=== PATIENT | female | born 1990 | race African-American/Black ===

== ENCOUNTER 2024-02-13 03:02 | Emergency (ER) | payer OTHER, SELFPAY ==
[2024-02-13 03:04] VITALS: BP 120/76
[2024-02-13 03:14] VITALS: BMI 19.4
--- NOTE | 2024-02-13 03:42 | ED.GENMED ---
History of Present Illness
General
Chief Complaint: Abdominal Pain
Source: patient
Exam Limitations: none
Time Seen by Provider: 02/13/24 03:28
Nursing documentation reviewed up to this point in time: agreed with
Travel History
Have you had any contact with someone who has COVID-19?: No
Do you have any symptoms of coronavirus? Fever > 100 degrees, chills, cough, shortness of breath, sore throat, loss of taste or smell, muscle aches, or headache?: No
History of Present Illness
History of Present Illness:
Pleasant 33-year-old female who presents with diffuse and upper abdominal pain. She states that it has been present for the last day. She reports that it feels similar to previous episodes of diverticulitis. She denies fever, chills, chest pain,
or shortness of breath. Patient states that she just got back from [place] on January 04. She reports that the last time she was diagnosed with diverticulitis, it was approximate month after returning home from [place]. She feels that there is a
correlation between her travels and her episodes of diverticulitis. Patient reports no previous abdominal surgeries. She does follow with a pot sander at an outside hospital.
Past History
Past History
ED Past Medical History: GERD
ED Past Surgical History: Other (Breast augmentation)
Social History
Tobacco: Non-smoker
Living: with roommate
Employment: Employed ([employer])
Review of Systems
Review of Systems
Allergies reviewed?: Yes
All Other Systems: ROS reviewed and negative except as documented in HPI and ROS
Constitutional: Reports no symptoms
EENT: Reports no symptoms
Respiratory: Reports no symptoms
Cardiac: Reports no symptoms
ABD/GI: Reports abdominal pain and nausea
: Reports no symptoms
Musculoskeletal: Reports no symptoms
Skin: Reports no symptoms
Neurological: Reports no symptoms
Endocrine: Reports no symptoms
Hematologic/Lymphatic: Reports no symptoms
Psychiatric: Reports no symptoms
Phy Exam
General Physical Exam
General Presentation: well appearing and no apparent distress
General Skin: warm and dry
General Habitus: normal
General Mental: alert
General Hydration: appears well hydrated
ENT Exam
ENT Exam: EOMI, pharynx normal, neck supple and normocephalic
Eye Exam
Eye Exam: PERRL, cornea clear and conjunctiva normal
Cardiovascular Exam
Cardiovascular Exam: regular rate/rhythm, no edema, no murmur and normal peripheral pulses
Pulmonary Exam
Pulmonary Exam: lungs clear, no respiratory distress, no rales, no crackles, no rhonchi, no stridor, no wheezing and no cough
Gastrointestinal Exam
Gastrointestinal Exam: soft, no organomegaly, no pulsatile mass and non distended
Palpation: generalized: Minimal tenderness
Neurological Exam
Neurological Exam: alert, oriented x3, no motor deficits and speech normal
Musculoskeletal Exam
Musculoskeletal Exam: full ROM and no edema
Skin Exam
Skin Exam: normal color, warm/dry, no rash and no petechia
Psychiatric Exam
Psychiatric Exam: normal mood/affect
Course
Orders/Labs/Results
Orders:
Orders
02/13/24 03:09
IV Insert/Care/Rem.- Treatment PRN
02/13/24 03:10
Test Result ONCE
02/13/24 03:32
Complete Blood Count/With Diff Urgent
Comprehensive Metabolic Panel Urgent
HCG, Serum Qualitative Screen Urgent
Lipase Urgent
02/13/24 03:41
Iohexol [Omnipaque] See Protocol PO NOW STA
02/13/24 03:42
CT Abd/pel W Iv And Oral Contr Urgent
Comment:
Reason For Exam: diffuse abd pain
02/13/24 04:04
Morphine Sulfate 4 mg .ROUTE .STK-MED ONE
Morphine Sulfate 4 mg IV NOW STA
Ondansetron Injectable [Zofran] 4 mg .ROUTE .STK-MED ONE
Ondansetron Injectable [Zofran] 4 mg IV NOW STA
02/13/24 04:05
Iohexol [Omnipaque] 50 ml .ROUTE .STK-MED ONE
02/13/24 04:08
0.9% Sodium Chloride 1000 ml [Nss] 1,000 ml IV BOLUS
02/13/24 04:36
Urinalysis Reflex To Culture Urgent
Date Specimen was Collected: 02/13/24
Time Specimen was Collected: 04:34
Abnormal Lab Results
02/13/24
03:32
RBC 3.93 L 10^6/uL
(4.20-5.40)
Hgb 11.9 L g/dL
(12.0-16.0)
Hct 34.2 L %
(37.0-47.0)
Neutrophils % 76.7 H %
(42.2-75.2)
Lymphocytes % 18.0 L %
(20.5-51.1)
Chloride 108 H mmol/L
(98-107)
Glucose 126 H mg/dl
(70-99)
02/13/24 03:32
02/13/24 03:32
Vital Signs
Initial and Last Documented VS:
Initial Vital Signs
Temp Pulse Resp BP Pulse Ox
97.9 F 96 18 120/76 100
02/13/24 03:04 02/13/24 03:04 02/13/24 03:04 02/13/24 03:04 02/13/24 03:04
Last Documented Vital Signs
Temp Pulse Resp BP Pulse Ox
97.9 F 65 18 104/65 100
02/13/24 03:04 02/13/24 07:55 02/13/24 07:55 02/13/24 07:55 02/13/24 07:55
*Critical Care Note
Total Time (30-74mins, 75-104mins- exclusive of procedures): Not Applicable
Update Note
Update Note:
Patient has had 2 children. Denies vaginal bleeding discharge or pelvic pain. States that her pain is in her upper abdomen. I discussed CAT scan findings with her. At this time she defers pelvic exam stating that she will follow-up with her
RE ETCHER. She will return to the ER if she cannot get follow-up. Patient being discharged in stable condition.
ED Attending Note
-
Portions of this chart may have been created with voice recognition software.� Occasional wrong word or��sound alike� substitutions may have occurred due to the inherent limitations of voice recognition software.
Discharge Plan
Departure
Patient Disposition: Home (Routine Discharge)
Date of Disposition: 02/13/24
Time of Disposition: 07:12
Patient with high blood pressure during this ER visit?: No
Discharge Problem:
Abdominal pain, Constipation
Prescriptions:
No Action
Daily Fiber (psyllium-aspart)
1 dose PO DAILY
Probiotic
1 tab PO DAILY
multivitamin
1 tab PO DAILY
Referrals:
Alesha Wise CRNP [Family Provider] -
Activity Restrictions/Additional Instructions:
I have given you a copy of your CT scan report. Please follow-up with your RE ETCHER, as discussed
It was a pleasure meeting you and taking part in your care. We hope for your continued healing and wellness.
Please read discharge instructions in their entirety. However, they are for general education and may not describe your exact diagnosis at discharge. Information on your ER visit and medical conditions were discussed with you along with appropriate
follow up information...
If indicated, please take your medications as instructed and indicated on discharge paperwork.
Please schedule a follow up appointment as directed. Call to schedule an appointment
Please return to the emergency department with ANY change in, persisting, or worsening of symptoms. If any of your symptoms do not improve, or persist, or become more severe within 6-12 hours, please return to the emergency department for further
care.
Please return to the emergency department if you develop a headache, neck pain/stiffness, fever greater than 100.4F, chest pain, shortness of breath, persistent nausea, vomiting, slurred speech, difficulty walking, numbness/tingling, weakness, signs
of infection or any other symptoms that are worrisome to you.
If you have any questions or concerns please do not hesitate to call the Hospital at or E-mail me directly at [email or web address]
Interventions
Interventions:
*Risk Screen - Suicide Last Done: 02/13/24 03:04
*General Assessment Last Done: 02/13/24 03:04
*Neglect/Abuse Screening Last Done: 02/13/24 03:04
ED- Fall Risk Assessment Last Done: 02/13/24 03:04
*ED COVID-19 Vaccine History Last Done: 02/13/24 03:04
*Nursing Disposition Last Done: 02/13/24 08:08
US-Dkryyb-Btqklsnbet Assessment Last Done: 02/13/24 03:15
Discharge Date and Time
Discharge Date/Time: 02/13/24 08:08
[2024-02-13 03:44] LABS: % Basophils 0.1 % (0-2); % Eosinophils 0.2 % (0-6); % Immature Granulocytes 0.4 % (0-0.5); % Monocytes 4.6 % (1.7-9.3); % Neutrophils 76.7 % (42.2-75.2); Absolute Lymphocytes 1.5 10^3/uL (1.2-3.4); Absolute Monocytes 0.4 10^3/uL (0.1-0.6); Absolute Neutrophils 6.5 10^3/uL (1.4-6.5); Hematocrit 34.2 % (37.0-47.0); Hemoglobin 11.9 g/dL (12.0-16.0); Mean Corp Hgb Conc. 34.8 g/dL (33.0-37.0); Mean Corpuscular Hgb 30.3 pg (27.0-31.0); Nucleated Red Blood Cells % 0 %; Platelet Count 170 10^3/uL (130-400); Red Blood Cell Count 3.93 10^6/uL (4.20-5.40); Red Cell Dist. Width 12.2 % (11.5-14.5); White Blood Cell Count 8.4 10^3/uL (4.8-10.8)
[2024-02-13 03:56] LABS: HCG, Serum Qualitative Screen Negative
[2024-02-13 04:01] VITALS: BP 112/76
[2024-02-13 04:06] LABS: ALT (SGPT) 20 U/L (0-35); AST (SGOT) 26 U/L (14-36); Alkaline Phosphatase 63 U/L (38-126); Blood Urea Nitrogen 15 mg/dl (7-17); Calcium 8.9 mg/dl (8.4-10.2); Carbon Dioxide 22 mmol/L (22-30); Chloride 108 mmol/L (98-107); Estimated Creatinine Clearance 80 ml/min; Glucose 126 mg/dl (70-99); Lipase 48 U/L (23-300); Sodium 136 mmol/L (135-145); Total Bilirubin 0.4 mg/dl (0.2-1.3); Total Protein 7.5 g/dl (6.3-8.2); eGFR > 60.00
[2024-02-13] MEDS: MORPHINE SULFATE 4 MG IV (04:07)
[2024-02-13] MEDS: OMNIPAQUE 50 ML PO (04:07)
[2024-02-13] MEDS: ZOFRAN 4 MG IV (04:07)
[2024-02-13] MEDS: NSS 1000 IV (04:08)
[2024-02-13 04:46] LABS: Urine Albumin Negative (Neg - Trace); Urine Bilirubin Negative (Negative); Urine Character Clear (Clear); Urine Color Yellow; Urine Glucose Negative (Negative); Urine Ketone Negative (Negative); Urine Leukocyte Negative (Negative); Urine Nitrite Negative (Negative); Urine Occult Blood Negative (Negative); Urine Urobilinogen Negative (Neg - 1+)
[2024-02-13 05:46] VITALS: BP 99/65
[2024-02-13 06:59] VITALS: BP 118/71
[2024-02-13 07:55] VITALS: BP 104/65
== END 2024-02-13 08:08 | disposition home or self-care (01) ==
LOC: EMR 03:02
PROVIDERS: EMERGENCY PHYSICIAN Student in an Organized Health Care Education/Training Program; FAMILY PHYSICIAN Nurse Practitioner
DX: R10.9 Unspecified abdominal pain (principal); K59.00 Constipation, unspecified
CPT/HCPCS: 99285; 96374; 96375; 96361 ×2; 74177; 80053; 81003; 83690; 84703; 85025; Q9967

== ENCOUNTER 2024-05-21 07:11 | Emergency (ER) | payer OTHER, SELFPAY ==
[2024-05-21 07:17] VITALS: BP 125/82
[2024-05-21 08:00] VITALS: BMI 20.4
[2024-05-21] MEDS: DECADRON 10 MG PO (08:06)
[2024-05-21] MEDS: TORADOL 30 MG IM (08:07)
--- NOTE | 2024-05-21 08:37 | ED.GENMED ---
History of Present Illness
General
Chief Complaint: Cold/Flu/URI Symptoms
Source: patient
Exam Limitations: none
Time Seen by Provider: 05/21/24 07:35
Nursing documentation reviewed up to this point in time: agreed with
History of Present Illness
History of Present Illness:
33-year-old female with no significant chronic medical issues presents to the emergency room for evaluation of flulike illness. Patient reports onset of symptoms yesterday and have been constant since that time. She reports myalgias, nonproductive
cough, sore throat and headache. She denies any chest pain, shortness of breath. Denies any abdominal pain, nausea, vomiting. She denies any other complaints. 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 She feels she may be
dehydrated as she has pain with swallowing from her sore throat.
Past History
Past History
ED Past Medical History: GERD
ED Past Surgical History: Other (Breast augmentation)
Social History
Tobacco: Non-smoker
Living: with roommate
Employment: Employed ([employer])
Review of Systems
Review of Systems
All Other Systems: ROS reviewed and negative except as documented in HPI and ROS
Constitutional: Reports fever, fatigue and chills
EENT: Reports sore throat
Respiratory: Reports cough; Denies trouble breathing
Cardiac: Denies chest pain
ABD/GI: Denies abdominal pain, nausea or vomiting
: Denies dysuria
Musculoskeletal: Reports muscle pain (Myalgias)
Skin: Denies rash
Neurological: Reports headache; Denies dizzy
Phy Exam
Physical Exam
Physical Exam:
General: Awake, alert, oriented x3; no acute distress
Head: Normocephalic, atraumatic
Eyes: Conjunctiva normal, pupils equal round and reactive to light bilaterally
Throat: Airway intact, slightly dry mucous membranes, slight erythema in the posterior oropharynx but no tonsillar enlargement, erythema or exudate, no trismus
Neck: Trachea midline, supple without meningismus; she has bilateral anterior cervical chain lymphadenopathy
Lungs: Clear to auscultation bilaterally, no wheezing, rales, rhonchi
Heart: Regular rate and rhythm, no murmurs, gallops, or rubs
Abd: Soft, non distended, nontender
Neuro: No gross deficits
Skin: No rash
Extremities: Warm and well-perfused
Scores
Heart Failure Risk
Heart Failure Risk Score: Not Applicable
Heart Score for Chest Pain Patients
STEMI patient?: Not applicable
Withdrawal Assessment of Alcohol
Withdrawal Assessment Completed?: Not applicable
Course
Orders/Labs/Results
Orders:
Orders
05/21/24 07:41
Dexamethasone [Decadron] 10 mg PO NOW STA
Ketorolac [Toradol] 30 mg IM NOW STA
05/21/24 08:05
COVID-19 Antigen Urgent
Source: Nasal Swab
Influenza A+B Rapid Molecular Urgent
[place] Source: Nasal Swab
Specimen Description:
Rapid Strep Group A Urgent
CLEMENT[place] Source: Throat/Pharynx
Specimen Description:
Date Specimen was Collected: 05/21/24
Time Specimen was Collected: 07:48
05/21/24 08:36
Test Result ONCE
05/21/24 08:37
0.9% Sodium Chloride 1000 ml [Nss] 1,000 ml IV BOLUS
05/21/24 08:45
Basic Metabolic Panel Urgent
Complete Blood Count/No Diff Urgent
HCG, Serum Qualitative Screen Urgent
Monotest Urgent
Abnormal Lab Results
05/21/24
08:45
RBC 3.55 L 10^6/uL
(4.20-5.40)
Hgb 10.7 L g/dL
(12.0-16.0)
Hct 30.8 L %
(37.0-47.0)
05/21/24 08:45
05/21/24 08:45
Vital Signs
Initial and Last Documented VS:
Initial Vital Signs
Temp Pulse Resp BP Pulse Ox
36.8 C 99 16 125/82 100
05/21/24 07:17 05/21/24 07:17 05/21/24 07:17 05/21/24 07:17 05/21/24 07:17
Last Documented Vital Signs
Temp Pulse Resp BP Pulse Ox
36.8 C 86 18 100/68 100
05/21/24 07:17 05/21/24 08:47 05/21/24 08:47 05/21/24 08:47 05/21/24 08:47
MDM/Problems Addressed
Differential Diagnosis Includes:
Viral syndrome
MDM/Problems Addressed:
33-year-old female presents for evaluation of flulike illness�has had cough, sore throat, myalgias, headache since yesterday. She thinks she may be getting dehydrated as she has a sore throat and pain with swallowing. Vital signs are normal. Exam
as above. Will swab for COVID and flu. Check strep swab. Will check basic labs and monoscreen. Will provide IV fluids, Toradol, Decadron. Reassess after the above. Suspect likely viral syndrome and can be discharged with supportive care
pending initial ED assessment and treatment.
Labs reviewed: CBC shows mild anemia which is essentially stable. BMP no clinically significant abnormalities. COVID and flu were negative, Monospot negative. Clinical reassessment vital signs have been stable, patient feeling better after ED
treatment. Suspect likely viral syndrome. Plan for discharge with supportive care�advised Tylenol and Motrin as needed at home and vigorous p.o. hydration. Follow-up with PCP. Patient comfortable this plan. All questions answered.
*Pulse Oximetry
Patient hypoxic: no
*Critical Care Note
Total Time (30-74mins, 75-104mins- exclusive of procedures): Not Applicable
Data Reviewed
Source: patient
ED Attending Note
-
Portions of this chart may have been created with voice recognition software.� Occasional wrong word or��sound alike� substitutions may have occurred due to the inherent limitations of voice recognition software.
Discharge Plan
Departure
Patient Disposition: Home (Routine Discharge)
Date of Disposition: 05/21/24
Time of Disposition: 09:54
Patient with high blood pressure during this ER visit?: No
Discharge Problem:
Acute viral syndrome
Instructions: Viral Syndrome (DC)
Prescriptions:
No Action
Daily Fiber (psyllium-aspart)
1 dose PO DAILY
Probiotic
1 tab PO DAILY
multivitamin
1 tab PO DAILY
Referrals:
Alesha Wise CRNP [Family Provider] - Follow up in 5-7 days
Activity Restrictions/Additional Instructions:
Thank you for visiting the Emergency Department at [facility].
1. Please schedule a follow up appointment as directed. Call first thing tomorrow morning to make an appointment.
2. If indicated, please take your medications as instructed and indicated on discharge paperwork.
3. If any of your symptoms do not improve, or persist, or become more severe within 6-12 hours, please return to the emergency department for further care.
4. Please return to the emergency department if you develop a headache, neck pain/stiffness, fever greater than 100.4F, chest pain, shortness of breath, persistent nausea, vomiting, slurred speech, difficulty walking, numbness/tingling, weakness,
signs of infection or any other symptoms that are worrisome to you.
Please call [phone] if you have any questions.
Interventions
Interventions:
*Risk Screen - Suicide Last Done: 05/21/24 07:20
*General Assessment Last Done: 05/21/24 07:17
*Neglect/Abuse Screening Last Done: 05/21/24 07:20
ED- Fall Risk Assessment Last Done: 05/21/24 08:21
*ED COVID-19 Vaccine History Last Done: 05/21/24 07:17
ED- Pulmonary Assessment Last Done: 05/21/24 08:21
Discharge Date and Time
Print Language: BARBADIAN
[2024-05-21 08:39] LABS: COVID-19 Antigen Negative (Negative)
[2024-05-21] MEDS: NSS 1000 IV (08:46)
[2024-05-21 08:47] VITALS: BP 100/68
[2024-05-21 08:54] LABS: Hematocrit 30.8 % (37.0-47.0); Hemoglobin 10.7 g/dL (12.0-16.0); Mean Corp Hgb Conc. 34.7 g/dL (33.0-37.0); Mean Corpuscular Hgb 30.1 pg (27.0-31.0); Mean Corpuscular Volume 86.8 fL (81.0-99.0); Mean Platelet Volume 10.3 fL (7.4-10.4); Platelet Count 158 10^3/uL (130-400); Red Blood Cell Count 3.55 10^6/uL (4.20-5.40); Red Cell Dist. Width 12.6 % (11.5-14.5); White Blood Cell Count 7.7 10^3/uL (4.8-10.8)
[2024-05-21 09:06] LABS: HCG, Serum Qualitative Screen Negative
[2024-05-21 09:08] LABS: Blood Urea Nitrogen 13 mg/dl (7-17); Calcium 9.3 mg/dl (8.4-10.2); Carbon Dioxide 23 mmol/L (22-30); Chloride 106 mmol/L (98-107); Estimated Creatinine Clearance > 125 ml/min; Glucose 95 mg/dl (70-99); Potassium 3.9 mmol/L (3.5-5.1); Sodium 136 mmol/L (135-145); eGFR > 60.00
[2024-05-21 09:46] LABS: Monotest Negative (Negative)
== END 2024-05-21 10:31 | disposition home or self-care (01) ==
LOC: EMR 07:11
PROVIDERS: EMERGENCY PHYSICIAN Emergency Medicine; FAMILY PHYSICIAN Nurse Practitioner
DX: B34.9 Viral infection, unspecified (principal); K21.9 Gastro-esophageal reflux disease without esophagitis
CPT/HCPCS: 99283; 96372; 96360; 80048; 84703; 85027; 86308; 87070; 87502; 87811; 87880

== ENCOUNTER 2024-05-25 00:53 | Emergency (ER) | payer OTHER, SELFPAY ==
[2024-05-25 01:18] VITALS: BP 126/74
[2024-05-25 04:12] VITALS: BMI 20.3
[2024-05-25 04:14] VITALS: BP 114/85
--- NOTE | 2024-05-25 07:17 | ED.GENMED ---
History of Present Illness
General
Chief Complaint: Cough
Source: patient and records
Exam Limitations: none
Time Seen by Provider: 05/25/24 07:06
Nursing documentation reviewed up to this point in time: agreed with
History of Present Illness
History of Present Illness:
33 yo female presents emergency department complaining of cough ongoing for about 1 week. No fevers. She was taking DayQuil and ibuprofen.
Past History
Past History
ED Past Medical History: GERD
ED Past Surgical History: Other (Breast augmentation)
Social History
Tobacco: Non-smoker
Living: with roommate
Employment: Employed ([employer])
Review of Systems
Review of Systems
Allergies reviewed?: Yes
All Other Systems: Not applicable
Constitutional: Reports no symptoms; Denies fever
EENT: Reports no symptoms
Respiratory: Reports cough
Cardiac: Reports no symptoms
ABD/GI: Reports no symptoms
: Reports no symptoms
Musculoskeletal: Reports no symptoms
Skin: Reports no symptoms
Neurological: Reports no symptoms
Endocrine: Reports no symptoms
Hematologic/Lymphatic: Reports no symptoms
Psychiatric: Reports no symptoms
Phy Exam
Physical Exam
Physical Exam:
Physical Exam
General: no apparent distress, not acutely ill
Neck: supple. no meningeal signs. normal posterior pharynx
Heart: s1/s2 regular rate and rhythm, no murmur. equal radial
pulses.
HEENT: Pupils equal round reactive to light, EOMI
Lungs: no acute respiratory distress. clear bilaterally
Abdomen: normal bowel sounds. not tender. no CVAT
Neuro: alert and oriented. no focal neurological deficits cranial nerves II through XII intact
Skin: no rash
Psychiatric: well kept. interactive and cooperative
Extremities: no edema. no calf tenderness. negative homans. good distal pulses
Course
Orders/Labs/Results
Orders:
Orders
05/25/24 07:16
Ibuprofen [Motrin] 600 mg PO NOW STA
CR Chest - 2 Views Urgent
Comment:
Reason For Exam: cough
Vital Signs
Initial and Last Documented VS:
Initial Vital Signs
Temp Pulse Resp BP Pulse Ox
98.3 F 80 22 126/74 99
05/25/24 01:18 05/25/24 01:18 05/25/24 01:18 05/25/24 01:18 05/25/24 01:18
Last Documented Vital Signs
Temp Pulse Resp BP Pulse Ox
98.3 F 80 22 114/85 99
05/25/24 01:18 05/25/24 01:18 05/25/24 01:18 05/25/24 04:14 05/25/24 01:18
MDM/Problems Addressed
Differential Diagnosis Includes:
Pneumonia, viral illness
MDM/Problems Addressed:
31-year-old female with viral URI. Normal chest x-ray. No signs of pneumonia. Continue supportive treatment. Follow-up with primary care.
*Radiology
Radiology exam reviewed: preliminary read by ED provider (Chest x-ray no acute findings) and radiology read reviewed (Chest x-ray no acute findings)
*Pulse Oximetry
Patient hypoxic: no
*EKG
Interpreted by ED Provider?: NA
*Psychiatric Lpn Interpretation
Rate: Psychiatric Lpn- N/A
*Critical Care Note
Total Time (30-74mins, 75-104mins- exclusive of procedures): Not Applicable
Data Reviewed
Review of Other/Old Records Reveals: Radiology Studies (prior labs no acute findings, recent ED visit)
Patient Management
Social determinants of health affecting care: Living situation
Escalation/DeEscalation of care consider admission/obs:
admit not indicated
ED Attending Note
-
Portions of this chart may have been created with voice recognition software.� Occasional wrong word or��sound alike� substitutions may have occurred due to the inherent limitations of voice recognition software.
Discharge Plan
Departure
Patient Disposition: Home (Routine Discharge)
Date of Disposition: 05/25/24
Time of Disposition: 08:23
Patient with high blood pressure during this ER visit?: No
Condition: Good
Discharge Problem:
Cough
Instructions: Cough, Adult (DC)
Prescriptions:
No Action
Daily Fiber (psyllium-aspart)
1 dose PO DAILY
Probiotic
1 tab PO DAILY
multivitamin
1 tab PO DAILY
Referrals:
Alesha Wise CRNP [Family Provider] - Call in 1-3 days for appt
Interventions
Interventions:
*Risk Screen - Suicide Last Done: 05/25/24 01:18
*General Assessment Last Done: 05/25/24 04:12
*Neglect/Abuse Screening Last Done: 05/25/24 01:18
ED- Fall Risk Assessment Last Done: 05/25/24 04:12
*ED COVID-19 Vaccine History Last Done: 05/25/24 04:12
ED- Pulmonary Assessment Last Done: 05/25/24 04:12
Discharge Date and Time
Print Language: SINGAPORE[place]
[2024-05-25] MEDS: MOTRIN 600 MG PO (07:40)
[2024-05-25 08:39] VITALS: BP 115/81
== END 2024-05-25 08:39 | disposition home or self-care (01) ==
LOC: EMR 00:53
PROVIDERS: EMERGENCY PHYSICIAN Emergency Medicine; FAMILY PHYSICIAN Nurse Practitioner
DX: R05.9 Cough, unspecified (principal); J06.9 Acute upper respiratory infection, unspecified; B97.89 Other viral agents as the cause of diseases classified elsewhere; K21.9 Gastro-esophageal reflux disease without esophagitis; D64.9 Anemia, unspecified
CPT/HCPCS: 99283; 71046

== ENCOUNTER 2024-07-29 17:02 | Emergency (ER) | payer OTHER, SELFPAY ==
[2024-07-29 17:13] VITALS: BP 102/71
--- NOTE | 2024-07-29 18:30 | ED.GENMED ---
History of Present Illness
General
Chief Complaint: Musculo-Skeletal Complaint
Source: patient
Exam Limitations: none
Time Seen by Provider: 07/29/24 18:17
Nursing documentation reviewed up to this point in time: agreed with
History of Present Illness
History of Present Illness:
33-year-old female presents emergency room complaining of right-sided low back pain that began a year ago, got worse over the past 3 days. She saw her primary care doctor and was prescribed Robaxin. Is not helping. She saw an orthopedist, who
recommended an MRI, but the MRI scanner was down at the time. She has not followed up with him since.
Past History
Past History
ED Past Medical History: GERD
ED Past Surgical History: Other (Breast augmentation)
Social History
Tobacco: Non-smoker
Alcohol: None
Drug: None
Living: with roommate
Employment: Employed ([employer])
Review of Systems
Review of Systems
Allergies reviewed?: Yes
All Other Systems: Not applicable
Constitutional: Reports no symptoms
EENT: Reports no symptoms
Respiratory: Reports no symptoms
Cardiac: Reports no symptoms
ABD/GI: Reports no symptoms
: Reports no symptoms
Musculoskeletal: Reports back pain
Skin: Reports no symptoms
Neurological: Reports no symptoms
Endocrine: Reports no symptoms
Hematologic/Lymphatic: Reports no symptoms
Psychiatric: Reports no symptoms
Phy Exam
Physical Exam
Physical Exam:
Physical Exam
General: no apparent distress, not acutely ill
Neck: supple. no meningeal signs. normal posterior pharynx
Heart: equal radial pulses.
HEENT: Pupils equal round reactive to light, EOMI, submandibular cyst palpated
Lungs: no acute respiratory distress.
Abdomen: normal bowel sounds. not tender. no CVAT
Neuro: alert and oriented. no focal neurological deficits
back:, No step-off, no tenderness to palpation
Skin: no rash
Psychiatric: well kept. interactive and cooperative
Extremities: no edema. no calf tenderness. negative homans. good distal pulses
Course
Orders/Labs/Results
Orders:
Orders
07/29/24 18:26
Lumbar Spine Complete, 4 View [CR Lumbar Spine Comp Min 4 Vw*] Urgent
Comment:
Reason For Exam: right side low back pain rad to rt leg
07/29/24 18:27
Ketorolac [Toradol] 15 mg IM NOW STA
Vital Signs
Initial and Last Documented VS:
Initial Vital Signs
Temp Pulse Resp BP Pulse Ox
99.3 F 89 18 102/71 100
07/29/24 17:13 07/29/24 17:13 07/29/24 17:13 07/29/24 17:13 07/29/24 17:13
Last Documented Vital Signs
Temp Pulse Resp BP Pulse Ox
98.4 F 74 18 112/74 99
07/29/24 20:00 07/29/24 20:00 07/29/24 20:00 07/29/24 20:00 07/29/24 20:00
MDM/Problems Addressed
Differential Diagnosis Includes:
Radiculopathy, sciatica
MDM/Problems Addressed:
33-year-old female with right-sided colopathy, do not suspect cauda equina. Treat with prednisone, Neurontin, follow-up with pain management.
*Radiology
Radiology exam reviewed: radiology read reviewed (Lumbar x-ray no acute findings)
*Pulse Oximetry
Patient hypoxic: no
*Critical Care Note
Total Time (30-74mins, 75-104mins- exclusive of procedures): Not Applicable
Patient Management
Social determinants of health affecting care: Living situation
Escalation/DeEscalation of care consider admission/obs:
admit not indicated
ED Attending Note
-
Portions of this chart may have been created with voice recognition software.� Occasional wrong word or��sound alike� substitutions may have occurred due to the inherent limitations of voice recognition software.
Discharge Plan
Departure
Patient Disposition: Home (Routine Discharge)
Date of Disposition: 07/29/24
Time of Disposition: 20:59
Patient with high blood pressure during this ER visit?: No
Condition: Good
Discharge Problem:
Acute lumbar radiculopathy
Prescriptions:
New
gabapentin 300 mg capsule
300 mg PO TID PRN (Reason: pain) Qty: 30 0RF
prednisone 50 mg tablet
50 mg PO DAILY Qty: 5 0RF
No Action
Daily Fiber (psyllium-aspart)
1 dose PO DAILY
Probiotic
1 tab PO DAILY
multivitamin
1 tab PO DAILY
erythromycin 5 mg/gram (0.5 %) ointment
0.5 inch ophthalmic (eye) BID Qty: 3.5 0RF
Referrals:
Otto Crespo MD [Active] - Call in 1-3 days for appt
Alesha Wise CRNP [Family Provider] -
Interventions
Interventions:
*Risk Screen - Suicide Last Done: 07/29/24 18:41
*General Assessment Last Done: 07/29/24 18:41
*Neglect/Abuse Screening Last Done: 07/29/24 18:41
ED- Fall Risk Assessment Last Done: 07/29/24 18:41
*ED COVID-19 Vaccine History Last Done: 07/29/24 18:41
ED-Musculoskeletal Assessment Last Done: 07/29/24 18:31
Discharge Date and Time
Print Language: [place]UN[place]
[2024-07-29] MEDS: TORADOL 15 MG IM (18:37)
[2024-07-29 20:00] VITALS: BP 112/74
== END 2024-07-29 21:19 | disposition home or self-care (01) ==
LOC: EMR 17:02
PROVIDERS: EMERGENCY PHYSICIAN Emergency Medicine; FAMILY PHYSICIAN Nurse Practitioner
DX: M54.16 Radiculopathy, lumbar region (principal); K21.9 Gastro-esophageal reflux disease without esophagitis
CPT/HCPCS: 99284; 96372; 72110

== ENCOUNTER 2025-08-04 20:30 | Emergency (ER) | payer OTHER, SELFPAY ==
[2025-08-04 20:32] VITALS: BP 117/80
[2025-08-04 22:00] VITALS: BP 110/73; BMI 21.8
--- NOTE | 2025-08-04 22:31 | ED.GENMED ---
History of Present Illness
General
Chief Complaint: Headache
Source: patient
Exam Limitations: none
Time Seen by Provider: 08/04/25 21:54
Nursing documentation reviewed up to this point in time: agreed with
History of Present Illness
History of Present Illness:
The patient is a pleasant 34-year-old female who reports waking up this morning with a headache at around 6 AM. Patient describes the pain as a pounding headache radiating down her neck. Patient denies vision changes, sore throat, rash, and fever.
She denies weakness or numbness. She reports that her eyes feel sensitive to light. Patient reports that despite taking Tylenol, Excedrin and Motrin, she still has a fairly severe headache. Patient reports that years ago she had a similar
headache but has not had one since. She denies a personal history of migraines. She denies a family history of cerebral aneurysm.
Past History
Past History
ED Past Medical History: GERD
ED Past Surgical History: Other (Breast augmentation)
Social History
Tobacco: Non-smoker
Alcohol: None
Drug: None
Personal: Other
Living: with roommate
Employment: Employed ([employer])
Family History
Family History: Other
Review of Systems
Review of Systems
Allergies reviewed?: Yes
All Other Systems: ROS reviewed and negative except as documented in HPI and ROS
Constitutional: Reports no symptoms
EENT: Reports no symptoms
Respiratory: Reports no symptoms
Cardiac: Reports no symptoms
ABD/GI: Reports no symptoms
: Reports no symptoms
Musculoskeletal: Reports neck pain
Skin: Reports no symptoms
Neurological: Reports headache
Endocrine: Reports no symptoms
Hematologic/Lymphatic: Reports no symptoms
Psychiatric: Reports no symptoms
Phy Exam
Physical Exam
Physical Exam:
Physical Exam
General: Patient appears uncomfortable but nontoxic
Neck: supple. no meningeal signs. normal psoterior pharynx. No meningismus. Able to fully range his neck without any stiffness or discomfort
Heart: s1/s2 regular rate and rhythm, no murmur. equal radial pulses.
Lungs: no acute respiratory distress. clear bilaterally
Abdomen: normal bowel sounds. not tender. no CVAT
Neuro: alert and oriented x 3. no focal neurological deficits. Extraocular muscles intact, PERRL, 5 out of 5 strength in all extremities. Cranial nerves equal and symmetric bilaterally
Skin: no rash
Psychiatric: well kept. interactive and cooperative
Extremities: no edema. no calf tenderness. negative homans. good distal pulses
Course
Orders/Labs/Results
Orders:
Orders
08/04/25 22:25
Complete Blood Count/With Diff Urgent
Comprehensive Metabolic Panel Urgent
HCG, Serum Qualitative Screen Urgent
08/04/25 22:28
Diphenhydramine [Benadryl] 25 mg IV NOW STA
Prochlorperazine [Compazine] 10 mg IV NOW STA
Test Result ONCE
08/04/25 22:29
0.9% Sodium Chloride 1000 ml [Nss] 1,000 ml IV BOLUS
Vital Signs
Initial and Last Documented VS:
Initial Vital Signs
Temp Pulse Resp BP Pulse Ox
98.0 F 92 18 117/80 96
08/04/25 20:32 08/04/25 20:32 08/04/25 20:32 08/04/25 20:32 08/04/25 20:32
Last Documented Vital Signs
Temp Pulse Resp BP Pulse Ox
98.0 F 92 18 110/73 99
08/04/25 20:32 08/04/25 20:32 08/04/25 20:32 08/04/25 22:00 08/04/25 22:01
MDM/Problems Addressed
Differential Diagnosis Includes:
Acute migraine headache, acute tension headache, subarachnoid hemorrhage
MDM/Problems Addressed:
Patient arrives with acute headache
*Pulse Oximetry
SaO2: 99
Oxygen Mode of Delivery: Room air
Patient hypoxic: no
*EKG
Interpreted by ED Provider?: NA
*Critical Care Note
Total Time (30-74mins, 75-104mins- exclusive of procedures): Not Applicable
Data Reviewed
Review of Other/Old Records Reveals: Labs (Labs reviewed from 05/2024-hemoglobin 10.7)
Source: patient
ED Attending Note
-
Portions of this chart may have been created with voice recognition software.� Occasional wrong word or��sound alike� substitutions may have occurred due to the inherent limitations of voice recognition software.
Discharge Plan
Departure
Prescriptions:
No Action
Daily Fiber (psyllium-aspart)
1 dose PO DAILY
Probiotic
1 tab PO DAILY
multivitamin
1 tab PO DAILY
erythromycin 5 mg/gram (0.5 %) ointment
0.5 inch ophthalmic (eye) BID Qty: 3.5 0RF
gabapentin 300 mg capsule
300 mg PO TID PRN (Reason: pain) Qty: 30 0RF
prednisone 50 mg tablet
50 mg PO DAILY Qty: 5 0RF
Referrals:
Alesha Wise CRNP [Family Provider, General]
Interventions
Interventions:
*Risk Screen - Suicide Last Done: 08/04/25 20:32
*General Assessment Last Done: 08/04/25 20:32
*Neglect/Abuse Screening Last Done: 08/04/25 20:32
*ED- Fall Risk Assessment Last Done: 08/04/25 22:00
*ED COVID-19 Vaccine History Last Done: 08/04/25 20:32
ED- Neurological Assessment Last Done: 08/04/25 22:00
Discharge Date and Time
Print Language: BELARUSIAN
[2025-08-04] MEDS: COMPAZINE 10 MG IV (22:37)
[2025-08-04] MEDS: BENADRYL 25 MG IV (22:37)
[2025-08-04] MEDS: NSS 1000 IV (22:40)
[2025-08-04 22:50] LABS: Hematocrit 31.7 % (37.0-47.0); Hemoglobin 11.1 g/dL (12.0-16.0); Mean Corp Hgb Conc. 35.0 g/dL (33.0-37.0); Mean Corpuscular Volume 87.6 fL (81.0-99.0); Nucleated Red Blood Cells % 0 %; Platelet Count 169 10^3/uL (130-400); Red Cell Dist. Width 12.3 % (11.5-14.5)
[2025-08-04 22:58] LABS: HCG, Serum Qualitative Screen Negative
[2025-08-04 23:00] VITALS: BP 97/68
[2025-08-04 23:07] LABS: ALT (SGPT) 14 U/L (0-35); AST (SGOT) 19 U/L (14-36); Albumin 4.0 g/dl (3.5-5.0); Alkaline Phosphatase 49 U/L (38-126); Blood Urea Nitrogen 14 mg/dl (7-17); Calcium 9.2 mg/dl (8.4-10.2); Carbon Dioxide 26 mmol/L (22-30); Chloride 108 mmol/L (98-107); Estimated Creatinine Clearance 97 ml/min; Glucose 87 mg/dl (70-99); Potassium 4.2 mmol/L (3.5-5.1); Sodium 138 mmol/L (135-145); Total Protein 7.4 g/dl (6.3-8.2); eGFR > 60.00
[2025-08-04] MEDS: DILAUDID 0.5 MG IV (23:59)
[2025-08-05] MEDS: TORADOL 30 MG IV (00:48)
[2025-08-05] MEDS: NSS 1000 IV (00:48)
[2025-08-05 01:00] VITALS: BP 110/65
--- NOTE | 2025-08-05 01:34 | ED.GENMED ---
History of Present Illness
General
Chief Complaint: Headache
Source: patient
Exam Limitations: none
Time Seen by Provider: 08/04/25 21:54
Nursing documentation reviewed up to this point in time: agreed with
History of Present Illness
History of Present Illness:
Please see chart from same visit, as I signed my previous chart prematurely
Past History
Past History
ED Past Medical History: GERD
ED Past Surgical History: Other (Breast augmentation)
Social History
Tobacco: Non-smoker
Alcohol: None
Drug: None
Personal: Other
Living: with roommate
Employment: Employed ([employer])
Family History
Family History: Other
Review of Systems
Review of Systems
Allergies reviewed?: Yes
All Other Systems: Not applicable
Phy Exam
Physical Exam
Physical Exam:
Please see chart from same visit
Course
Orders/Labs/Results
Orders:
Orders
08/04/25 22:28
Diphenhydramine [Benadryl] 25 mg IV NOW STA
Prochlorperazine [Compazine] 10 mg IV NOW STA
Test Result ONCE
08/04/25 22:29
0.9% Sodium Chloride 1000 ml [Nss] 1,000 ml IV BOLUS
08/04/25 22:32
Complete Blood Count/With Diff Urgent
Comprehensive Metabolic Panel Urgent
HCG, Serum Qualitative Screen Urgent
08/04/25 23:33
CT Head W/o Iv Contrast Urgent
Comment:
Reason For Exam: headache
08/04/25 23:34
HYDROmorphone [Dilaudid] 0.5 mg IV NOW STA
08/05/25 00:34
0.9% Sodium Chloride 1000 ml [Nss] 1,000 ml IV BOLUS
08/05/25 00:35
Ketorolac [Toradol] 30 mg IV NOW STA
Abnormal Lab Results
08/04/25
22:32
WBC 4.4 L 10^3/uL
(4.8-10.8)
RBC 3.62 L 10^6/uL
(4.20-5.40)
Hgb 11.1 L g/dL
(12.0-16.0)
Hct 31.7 L %
(37.0-47.0)
Monocytes % 11.0 H %
(1.7-9.3)
Chloride 108 H mmol/L
(98-107)
08/04/25 22:32
08/04/25 22:32
Vital Signs
Initial and Last Documented VS:
Initial Vital Signs
Temp Pulse Resp BP Pulse Ox
98.0 F 92 18 117/80 96
08/04/25 20:32 08/04/25 20:32 08/04/25 20:32 08/04/25 20:32 08/04/25 20:32
Last Documented Vital Signs
Temp Pulse Resp BP Pulse Ox
98.0 F 92 18 110/65 98
08/04/25 20:32 08/04/25 20:32 08/04/25 20:32 08/05/25 01:00 08/05/25 01:45
MDM/Problems Addressed
Differential Diagnosis Includes:
Please see chart from same visit
*Radiology
Radiology exam reviewed: radiology read reviewed
*Pulse Oximetry
SaO2: 98
Oxygen Mode of Delivery: Room air
Patient hypoxic: no
*EKG
Interpreted by ED Provider?: NA
*Medical Sales Specialist Interpretation
Rate: normal
Interpretation: normal
Rhythm: sinus
*Critical Care Note
Total Time (30-74mins, 75-104mins- exclusive of procedures): Not Applicable
Data Reviewed
Source: patient
Patient Management
Social determinants of health affecting care: Living situation and Strong social support
Escalation/DeEscalation of care consider admission/obs:
1:00 AM patient reports headache is much better. Patient shows no sign of meningitis, as she appears nontoxic and has no meningismus.
ED Attending Note
-
Portions of this chart may have been created with voice recognition software.� Occasional wrong word or��sound alike� substitutions may have occurred due to the inherent limitations of voice recognition software.
Discharge Plan
Departure
Patient Disposition: Other
Date of Disposition: 08/05/25
Time of Disposition: 02:23
Patient with high blood pressure during this ER visit?: No
Condition: Good
Covid-19: Not Applicable
Discharge Problem:
Headache
Instructions: Headache, Adult (DC)
Prescriptions:
No Action
Daily Fiber (psyllium-aspart)
1 dose PO DAILY
Probiotic
1 tab PO DAILY
multivitamin
1 tab PO DAILY
erythromycin 5 mg/gram (0.5 %) ointment
0.5 inch ophthalmic (eye) BID Qty: 3.5 0RF
gabapentin 300 mg capsule
300 mg PO TID PRN (Reason: pain) Qty: 30 0RF
prednisone 50 mg tablet
50 mg PO DAILY Qty: 5 0RF
Referrals:
Alesha Wise CRNP [Family Provider, General]
Judi Winstno MD [Non-Admitting Privileges, Psychiatry]
Activity Restrictions/Additional Instructions:
Please follow-up with your primary care doctor within 1 week. If you develop recurrent headaches, please follow-up with neurology
Interventions
Interventions:
*Risk Screen - Suicide Last Done: 08/04/25 20:32
*General Assessment Last Done: 08/04/25 20:32
*Neglect/Abuse Screening Last Done: 08/04/25 20:32
*ED- Fall Risk Assessment Last Done: 08/04/25 22:00
*ED COVID-19 Vaccine History Last Done: 08/04/25 20:32
ED- Neurological Assessment Last Done: 08/04/25 22:00
Discharge Date and Time
Print Language: INDIAN
[2025-08-05 02:00] VITALS: BP 111/73
[2025-08-05 03:00] VITALS: BP 104/73
[2025-08-05 04:00] VITALS: BP 118/79
[2025-08-05 05:00] VITALS: BP 112/75
== END 2025-08-05 05:32 | disposition home or self-care (01) ==
LOC: EMR 20:30
PROVIDERS: EMERGENCY PHYSICIAN Emergency Medicine; FAMILY PHYSICIAN Nurse Practitioner
DX: R51.9 Headache, unspecified (principal); K21.9 Gastro-esophageal reflux disease without esophagitis
CPT/HCPCS: 99284; 96374; 96375 ×3; 96361 ×2; 70450; 80053; 84703; 85025